=== PATIENT | female | born 1970 | race American Indian/Alaskan Native ===

== ENCOUNTER 2020-07-18 00:02 | Emergency (ER) | payer SELFPAY ==
[2020-07-18] MEDS ORDERED: FAMOTIDINE 20 MG TAB PO ONE (00:29)
[2020-07-18] MEDS ORDERED: ACETAMINOPHEN 325 MG TAB PO STA (00:30)
--- NOTE | 2020-07-18 00:30 | Emergency Department Report ---
ED General Adult HPI - General Chief complaint: Skin Rash Stated complaint: I have bumps in my groin, and my face is swollen PUI?: No Time Seen by Provider: 07/18/20 00:20 Source: patient, RN notes reviewed Mode of arrival: Ambulatory Limitations: No Limitations - History of Present Illness Initial comments: The patient was evaluated in the emergency department for symptoms described in the history of present illness. He/she was evaluated in the context of the global COVID-19 pandemic, which necessitated consideration that the patient might be at risk for infection with the virus that causes COVID-19. Institutional protocols and algorithms that pertain to the evaluation of patients at risk for COVID-19 are in a state of rapid change based on information released by regulatory bodies including the CDC and federal and state organizations. These policies and algorithms were followed during the patient's care in the emergency department. Please note that these policies, procedures and recommendations changed on a rapid basis. During the history and physical examination, all parts of the physical examination, including gynecologic exam, I am chaperoned by nurse Carmencita Del Cid The patient is a 50-year-old female. She is not known to myself previously. She states she is not . She has a history of chlamydia, diagnosed in 2019. She reports that approximately 5 to 6 days ago, her primary care doctor p resumptively diagnosed her with a urinary tract infection, and prescribed metronidazole and Bactrim. She has been taking these medications, and was "told my doctor to stop one of them, I am not sure which." She presents to the ER today with a complaint of painless facial swelling/swelling beneath her bilateral eyes, without tongue swelling, lip swelling, stridor, or difficulty speaking, and bilateral inguinal pain and discomfort. The patient denies headache, neck pain, chest pain, abdominal pain, shortness of breath. She denies neck pain, and difficulty speaking/swallowing. She endorses vaginal discharge. She is sexually active with one partner, who intermittently uses condoms. She has been with the same partner since at least 2019, when she was diagnosed with chlamydia, denies other intimate partners. She denies rectal pain, dyschezia, nausea, vomiting, muscle aches, loss of smell. She took Benadryl at home without significant improvement in symptoms. -: Gradual, hour(s) Location: face, left, right (Bilateral inguinal regions) Quality: other (Bilateral inguinal bumps are achy) Consistency: constant Improves with: rest Worsens with: other (Facial swelling has no exacerbating or relieving factors. Bilateral inguinal adenopathy pain increases with palpation) - Related Data Previous Rx's Medication Instructions Recorded Last Taken Type Ferrous Sulfate [Ferrous Sulfate 324 mg PO BID #60 tablet. 07/18/20 Unknown Rx 324 MG] Potassium Chloride [K-Dur] 20 meq PO BID #60 tab 07/18/20 Unknown Rx metroNIDAZOLE [metroNIDAZOLE 70 gm VG QHS 5 Days #5 gel.w.appl 07/18/20 Unknown Rx VAGINAL 0.75% gel] Allergies Allergy/AdvReac Type Severity Reaction Status Date / Time No Known Allergies Allergy Unverified 07/18/20 00:12 ED Review of Systems ROS: Stated complaint: SOB/FACE SWELLING Other details as noted in HPI Constitutional: denies: diaphoresis, fever, malaise, weakness Eyes: denies: eye discharge, vision change ENT: denies: throat pain, dental pain, hearing loss, epistaxis, congestion Respiratory: denies: cough, shortness of breath Cardiovascular: denies: chest pain, palpitations Gastrointestinal: denies: abdominal pain, nausea, vomiting, diarrhea Genitourinary: discharge. denies: urgency, dysuria Musculoskeletal: denies: back pain, arthralgia, myalgia Skin: as per HPI Neurological: denies: weakness Hematological/Lymphatic: denies: easy bleeding ED Past Medical Hx - Past Medical History Previous Medical History?: No - Surgical History Past Surgical History?: No - Social History Smoking Status: Never Smoker Substance Use Type: None - Medications Home Medications: Home Medications Medication Instructions Recorded Confirmed Last Taken Type Ferrous Sulfate [Ferrous Sulfate 324 mg PO BID #60 tablet. 07/18/20 Unknown Rx 324 MG] Potassium Chloride [K-Dur] 20 meq PO BID #60 tab 07/18/20 Unknown Rx metroNIDAZOLE [metroNIDAZOLE 70 gm VG QHS 5 Days #5 gel.w.appl 07/18/20 Unknown Rx VAGINAL 0.75% gel] ED Physical Exam - General Limitations: No Limitations General appearance: alert, in no apparent distress - Head Head exam: Present: atraumatic, normocephalic - Eye Eye exam: Present: normal appearance, EOMI. Absent: nystagmus - ENT ENT exam: Present: normal exam, normal orophraynx, mucous membranes moist, normal external ear exam - Neck Neck exam: Present: normal inspection, full ROM. Absent: tenderness, meningismus - Respiratory Respiratory exam: Present: normal lung sounds bilaterally. Absent: respiratory distress, wheezes, rales, rhonchi, stridor, accessory muscle use, decreased breath sounds, prolonged expiratory - Cardiovascular Cardiovascular Exam: Present: regular rate, normal rhythm, normal heart sounds. Absent: bradycardia, tachycardia, irregular rhythm, systolic murmur, diastolic murmur, rubs, gallop - GI/Abdominal GI/Abdominal exam: Present: soft, normal bowel sounds. Absent: distended, tenderness, guarding, rebound, rigid, pulsatile mass - External exam: Present: normal external exam, other (There is bilateral inguinal adenopathy noted. Chaperoned by nurse Carmencita Del Cid). Absent: erythema, swelling, lacerations, ecchymosis, bleeding Speculum exam: Present: vaginal discharge, cervical discharge. Absent: erythema, vaginal bleeding, foreign body, tissue, laceration - Extremities Exam Extremities exam: Present: normal inspection, full ROM, other (2+ pulses noted in the bilateral upper and lower extremities. There is no palpable cord. negative Homans sign. Muscular compartments are soft. The pelvis is stable.). Absent: pedal edema, calf tenderness - Back Exam Back exam: Present: normal inspection, full ROM. Absent: tenderness, CVA tenderness (R), CVA tenderness (L), paraspinal tenderness, vertebral tenderness - Neurological Exam Neurological exam: Present: alert, normal gait, other (No facial droop. Tongue midline. Extraocular movements intact bilaterally. Facial sensation intact to light touch in V1, V2, V3 distribution bilaterally. 5 and a 5 strength in 4 extremities. Sensation intact to light touch in 4 extremities.). Absent: motor sensory deficit - Psychiatric Psychiatric exam: Present: normal affect, normal mood - Skin Skin exam: Present: warm, dry, intact, normal color. Absent: rash ED Course Vital Signs 07/18/20 07/18/20 07/18/20 00:13 00:39 00:45 Temperature 99.1 F Pulse Rate 93 H Respiratory 20 Rate Blood Pressure 150/91 135/80 133/65 O2 Sat by Pulse 99 100 100 Oximetry O2 Sat by Pulse Oximetry [ Digit-Finger] 07/18/20 07/18/20 07/18/20 00:49 00:49 01:01 Temperature Pulse Rate Respiratory 18 Rate Blood Pressure 145/67 O2 Sat by Pulse 100 Oximetry O2 Sat by Pulse 99 Oximetry [ Digit-Finger] 07/18/20 07/18/20 07/18/20 01:15 01:31 01:45 Temperature Pulse Rate Respiratory Rate Blood Pressure 118/63 118/63 118/69 O2 Sat by Pulse 100 100 100 Oximetry O2 Sat by Pulse Oximetry [ Digit-Finger] - Reevaluation(s) Reevaluation #1: 07/18/20 00:48 Differential diagnosis, including but not limited to: Chlamydia, medication side effect, renal insufficiency, hepatic insufficiency bacteriuria Assessment and plan: 50-year-old female presumptively diagnosed with urinary tract infection last week, who took Bactrim and Flagyl for multiple days without any issue, who presents to the ER today with bilateral inguinal adenopathy, and facial swelling. There is no stridor or dysphonia, there is no elevation of the base of the tongue, patient saturating well on room air, does not have any obvious rash on my examination, her history and physical are not suggestive of an allergic/anaphylactic reaction. I am suspicious for chlamydia. We have obtained gynecologic swabs and wet prep. Patient has clear lungs with no JVD, and denies other mucous membrane symptomatology. Her gynecologic examination was suggestive of vaginal discharge. We will check a CBC, comprehensive metabolic panel to exclude significant anemia, renal insufficiency and hepatic insufficiency. We will reassess after initial data points. I discussed this plan of care with the patient, who verbalized understanding, and was amenable to this plan of care. 07/18/20 02:47 Laboratory studies are reviewed and appreciated. Patient reports heavy menstruation intermittently. She is not vaginally bleeding at this time. She denies hematemesis and bright red blood per rectum. We talked about iron sulfate supplementation versus diet and lifestyle modifications. Patient prefers diet and lifestyle modification, but is amenable to prescription with iron sulfate supplementation, just in case. She is okay with following up with outpatient [facility]. Mild hyponatremia asymptomatic. Mild hypokalemia repleted. Laboratory studies otherwise unremarkable. Urinalysis contaminated. However, patient denies dysuria. Given inguinal adenopathy, overall history and physical, we will treat empirically for chlamydia. Patient amenable to this plan of care. Wet prep reviewed and appreciated. Patient prefers to not receive additional oral Flagyl for this. Outpatient [facility] follow-up. Return precautions are reviewed. Extensive discussion held with patient regarding her various laboratory findings. - Pulse Oximetry Interpretation Digit-Finger Initial Pulse Oximetry Readin O2 Sat by Pulse Oximetry: 99 Actions Taken: none ED Medical Decision Making - Lab Data Result diagrams: 07/18/20 00:35 07/18/20 00:35 Vital Signs 07/18/20 07/18/20 07/18/20 00:13 00:39 00:47 Temperature 99.1 F Pulse Rate 93 H Respiratory 20 Rate Blood Pressure 150/91 135/80 O2 Sat by Pulse 99 100 Oximetry O2 Sat by Pulse 99 Oximetry [ Digit-Finger] Lab Results 07/18/20 07/18/20 07/18/20 Range/Units 00:35 00:35 Unknown WBC 10.5 (4.5-11.0) K/mm3 RBC 4.52 (3.65-5.03) M/mm3 Hgb 8.2 L (10.1-14.3) gm/dl Hct 26.9 L (30.3-42.9) % MCV 59 L (79-97) fl MCH 18 L (28-32) pg MCHC 30 (30-34) % RDW 25.8 H (13.2-15.2) % Plt Count 349 (140-440) K/mm3 Sodium 129 L (137-145) mmol/L Potassium 3.1 L (3.6-5.0) mmol/L Chloride 87.2 L (98-107) mmol/L Carbon Dioxide 22 (22-30) mmol/L Anion Gap 23 mmol/L BUN 10 (7-17) mg/dL Creatinine 1.1 (0.6-1.2) mg/dL Estimated GFR > 60 ml/min BUN/Creatinine Ratio 9 % Glucose 86 (65-100) mg/dL Calcium 10.3 H (8.4-10.2) mg/dL Magnesium (1.7-2.3) mg/dL Total Bilirubin 0.50 (0.1-1.2) mg/dL AST 25 (5-40) units/L ALT 10 (7-56) units/L Alkaline Phosphatase 47 (35-129) units/L Total Protein 7.2 (6.3-8.2) g/dL Albumin 4.0 (3.9-5) g/dL Albumin/Globulin Ratio 1.3 % Urine Color Yellow (Yellow) Urine Turbidity Cloudy (Clear) Urine pH 5.0 (5.0-7.0) Ur Specific [place] 1.010 (1.003-1.030) Urine Protein 30 mg/dl (Negative) mg/dL Urine Glucose (UA) Neg (Negative) mg/dL Urine Ketones Neg (Negative) mg/dL Urine Blood Mod (Negative) Urine Nitrite Neg (Negative) Ur Reducing Substances Not Reportable Urine Bilirubin Neg (Negative) Urine Ictotest Not Reportable Urine Urobilinogen < 2.0 (<2.0) mg/dL Ur Leukocyte Esterase Lg (Negative) Urine WBC (Auto) 50.0 H (0.0-6.0) /HPF Urine RBC (Auto) 4.0 (0.0-6.0) /HPF U Epithel Cells (Auto) 14.0 H (0-13.0) /HPF Urine Mucus 1+ /HPF Urine Yeast (Budding) Few /HPF Urine HCG, Qual Negative (Negative) 07/18/20 Range/Units Unknown WBC (4.5-11.0) K/mm3 RBC (3.65-5.03) M/mm3 Hgb (10.1-14.3) gm/dl Hct (30.3-42.9) % MCV (79-97) fl MCH (28-32) pg MCHC (30-34) % RDW (13.2-15.2) % Plt Count (140-440) K/mm3 Sodium (137-145) mmol/L Potassium (3.6-5.0) mmol/L Chloride (98-107) mmol/L Carbon Dioxide (22-30) mmol/L Anion Gap mmol/L BUN (7-17) mg/dL Creatinine (0.6-1.2) mg/dL Estimated GFR ml/min BUN/Creatinine Ratio % Glucose (65-100) mg/dL Calcium (8.4-10.2) mg/dL Magnesium 1.70 (1.7-2.3) mg/dL Total Bilirubin (0.1-1.2) mg/dL AST (5-40) units/L ALT (7-56) units/L Alkaline Phosphatase (35-129) units/L Total Protein (6.3-8.2) g/dL Albumin (3.9-5) g/dL Albumin/Globulin Ratio % Urine Color (Yellow) Urine Turbidity (Clear) Urine pH (5.0-7.0) Ur Specific [place] (1.003-1.030) Urine Protein (Negative) mg/dL Urine Glucose (UA) (Negative) mg/dL Urine Ketones (Negative) mg/dL Urine Blood (Negative) Urine Nitrite (Negative) Ur Reducing Substances Urine Bilirubin (Negative) Urine Ictotest Urine Urobilinogen (<2.0) mg/dL Ur Leukocyte Esterase (Negative) Urine WBC (Auto) (0.0-6.0) /HPF Urine RBC (Auto) (0.0-6.0) /HPF U Epithel Cells (Auto) (0-13.0) /HPF Urine Mucus /HPF Urine Yeast (Budding) /HPF Urine HCG, Qual (Negative) Vital Signs 07/18/20 07/18/20 07/18/20 00:13 00:39 00:45 Temperature 99.1 F Pulse Rate 93 H Respiratory 20 Rate Blood Pressure 150/91 135/80 133/65 O2 Sat by Pulse 99 100 100 Oximetry O2 Sat by Pulse Oximetry [ Digit-Finger] 07/18/20 07/18/20 07/18/20 00:49 00:49 01:01 Temperature Pulse Rate Respiratory 18 Rate Blood Pressure 145/67 O2 Sat by Pulse 100 Oximetry O2 Sat by Pulse 99 Oximetry [ Digit-Finger] 07/18/20 07/18/20 07/18/20 01:15 01:31 01:45 Temperature Pulse Rate Respiratory Rate Blood Pressure 118/63 118/63 118/69 O2 Sat by Pulse 100 100 100 Oximetry O2 Sat by Pulse Oximetry [ Digit-Finger] Critical care attestation.: If time is entered above; I have spent that time in minutes in the direct care of this critically ill patient, excluding procedure time. ED Disposition Clinical Impression: Inguinal adenopathy, Vaginal discharge, Facial swelling, Microcytic anemia, Hypokalemia Disposition: TO HOME OR SELFCARE Is pt being admited?: No Does the pt Need Aspirin: No Condition: Good Instructions: Chlamydia, Female, Bacterial Vaginosis, Hypokalemia, Preventing Iron Deficiency Anemia, Adult Additional Instructions: Do not consume alcohol, until cleared to do so by a primary care doctor. Cultures were sent today, and results will be available in the next 3 to 5 days. Please have a primary care doctor or [employer] [employer] physician contact medical records department to obtain culture results. Please follow-up with a primary care doctor or [employer] doctor within the next 2 weeks for repeat checkup/evaluation. Use the MetroGel vaginally as needed/directed. Take the iron sulfate supplementation as directed, exercise caution, this medication may cause constipation, abdominal cramping, black tarry stools. Alternatively, patient may consume plenty of green leafy vegetables, and consume plenty of protein. Take the potassium supplementation as directed. Please make certain to follow- up with your primary care doctor within the recommended timeframe for repeat laboratory studies, to check blood counts, and basic metabolic panel. Patient may take [id number] acetaminophen, and/or ibuprofen as needed for pain. Patient may apply warm compresses as needed to her bilateral thighs/ingu inal region. Patient may discontinue oral Flagyl medication, and Bactrim medication at this time. I recommend outpatient testing for sexually transmitted diseases, including hepatitis, syphilis and HIV. I also recommend that you abstain from sexual activity until you have completed her antibiotic therapy, a physician states that it is safe for you to resume sexual activity, and any partners that you have been sexually active with have been tested/treated/evaluated for sexual transmitted diseases. please return to the ER right away with worsening pain, migration of pain, intractable nausea/vomiting, inability tolerate liquid feeds. Referrals: KIRTI YEH MD [Staff Physician] - 3-5 Days [facility] [Provider Group] - 3-5 Days [facility] [Provider Group] - 3-5 Days [facility] [Provider Group] - 3-5 Days [facility] [Provider Group] - 3-5 Days Forms: Work/School Release Form(ED)
[2020-07-18 00:45] LABS: HCG Qualitative,Urine Negative (Negative)
[2020-07-18 00:59] LABS: Hematocrit 26.9 % (30.3-42.9); Hemoglobin 8.2 gm/dl (10.1-14.3); Mean Corpuscular HGB Conc 30 % (30-34); Platelet Count 349 K/mm3 (140-440); Red Blood Count 4.52 M/mm3 (3.65-5.03)
[2020-07-18 01:06] LABS: Bilirubin,Urine NEG (Negative); Blood,Urine MOD (Negative); Color,Urine Yellow (Yellow); Mucus,Urine 1+ /HPF; Urobilinogen,Urine < 2.0 mg/dL (<2.0)
[2020-07-18 01:07] LABS: Alanine Aminotransferase 10 units/L (7-56); BUN/Creatinine Ratio 9; Blood Urea Nitrogen 10 mg/dL (7-17); Calcium 10.3 mg/dL (8.4-10.2); Hemolysis Index 0
[2020-07-18 01:14] LABS: Mean Corpuscular Volume 59 fl (79-97); Red Cell Distribution Width 25.8 % (13.2-15.2)
[2020-07-18] MEDS ORDERED: FERROUS SULFATE 325 MG TAB PO ONE (02:07)
[2020-07-18] MEDS ORDERED: POTASSIUM CHLORIDE ER 20 MEQ TAB PO ONE (02:07)
[2020-07-18] MEDS ORDERED: AZITHROMYCIN 250 MG TAB PO ONE (02:45)
[2020-07-18] MEDS ORDERED: LIDOCAINE-MPF (1%) 10 MG/1 ML VIAL 5 ML INFILTRATI ONE (02:45)
[2020-07-18 02:59] VITALS: BP 120/78
== END 2020-07-18 03:05 | disposition home or self-care (01) ==
LOC: ED 00:02
DX: E87.6 Hypokalemia (principal); D50.9 Iron deficiency anemia, unspecified; N89.8 Other specified noninflammatory disorders of vagina; R59.0 Localized enlarged lymph nodes; Z79.899 Other long term (current) drug therapy
CPT/HCPCS: 36415; 80053; 81001; 81025; 83735; 85027; 87086; 87210; 87591; 96372; 99283; J0696